=== PATIENT | female | born 1970 | race Caucasian/White ===

== ENCOUNTER 2017-09-06 06:26 | Day surgery (SDC) | payer OTHER ==
[2017-09-06] MEDS ORDERED: LIDOCAINE 1%/EPI 1:100000 (20 ML MULTI DOSE VIAL) ONE (07:28)
[2017-09-06] MEDS ORDERED: ACETAMINOPHEN 325 MG TABLET (FP) PO PRN (08:02)
[2017-09-06] MEDS ORDERED: CIPROFLOXACIN HCL 0.3% OPHTH 2.5ML BOTTLE OP SCH (08:15)
[2017-09-06] MEDS ORDERED: CIPROFLOXACIN 0.3% EYE DROPS 5 ML BOTTLE ONE (08:16)
[2017-09-06] MEDS ORDERED: MIDAZOLAM HCL 2 MG/2 ML SINGLE DOSE VIAL ONE (09:15)
[2017-09-06] MEDS ORDERED: TETRACAINE 0.5% OPHTH SOLN 2 ML BOTTLE OD ONE (09:20)
[2017-09-06] MEDS ORDERED: POVIDONE-IODINE 5% OPHTHALMIC PREP 30 ML SOLUTION OD ONE (09:36)
[2017-09-06] MEDS ORDERED: LIDOCAINE 1%/EPI 1:100000 (20 ML MULTI DOSE VIAL) IJ ONE (09:42)
[2017-09-06] MEDS ORDERED: BSS (NA/CA/MG/K) BALANCED SALT SOLUTION OPHTH SOLN 15 ML BOTTLE OD ONE (09:42)
[2017-09-06] MEDS ORDERED: TRIAMCINOLONE ACET 40MG/1ML VIAL IJ ONE (10:11)
[2017-09-06] MEDS ORDERED: ACETAMINOPHEN 325 MG TABLET (FP) ONE (11:09)
--- NOTE | 2017-09-06 14:15 | OP ---
DATE OF OPERATION: 09/06/2017 SURGEON: Aracelis Flynn MD PREOPERATIVE DIAGNOSIS: Recurrent pterygium, right eye. POSTOPERATIVE DIAGNOSIS: Recurrent pterygium, right eye. PROCEDURE: Excision of recurrent pterygium with conjunctival autograft, right eye. ANESTHESIA: Topical MAC. COMPLICATONS: None. DESCRIPTION OF PROCEDURE: The patient was brought into the operating room and correctly identified along with the operative site. She was then prepped and draped in the usual sterile fashion including 5% Betadine solution in the conjunctival sac and an eyelid drape. An eyelid speculum was then placed into the right eye. The pterygium was inspected, and the borders were marked with a marking pen. Using Anna scissors, two conjunctival relaxing incisions were made superior and inferior to the pterygium, and the Anna scissors were then used to dissect to bare sclera. The pterygium was then bluntly dissected using Anna scissors as well as the Colibri forceps from the cornea. Care was made not to breech bone with membrane. The 57 blade was then used to sao tomean the corneal surface until there was no residual opacity noted. The pterygium was then further inspected and blunt dissection was performed using cotton-tip applicators as well as Weck-Cell Wasserman to release any subconjunctival scarring. This was performed pretty cleanly. There was some superior limbal scarring, and this was also freed with the Anna scissors. The conjunctival defect was immediately noted to retract despite not removing any recurrent pterygium. Some dissection was placed was then performed subconjunctivally in the area of the conjunctival defect for possibly 1-2 mm in the remaining conjunctiva. Care was made not to damage the medial rectus tendon by elevating the tissue. The conjunctival defect was then measured and measured vertically at the limbus 7 mm x 5 mm posterior and horizontally 5 mm. Attention was then placed to the superotemporal conjunctiva, and a small amount of lidocaine was injected, and appropriately sized conjunctival membrane was then created and freed. This conjunctival membrane was then brought over to the nasal conjunctival defect and secured in placed with five 10-0 nylon interrupted sutures. At the end of the procedure, the graft was noted to be well secured. The graft was approximately set 1 mm from the limbus, and subconjunctival Kenalog given, topical vancomycin given, the eye patched, and the patient discharged from the operating room in a stable condition. ARACELIS FLYNN M.D. [id number]
--- NOTE | 2017-09-07 11:38 | PATH ---
Surgical Pathology Report Patient Name: BRINDA FARRAR [facility]. Rec. #: [id number] /Age/Gender: 1970 (Age: 47) / F Account: [id number] Location: [facility] SURGICAL Taken: 09/06/2017 Received: 09/06/2017 Reported: 09/07/2017 Physicians: Lino Lyons M.D. Specimen(s) Received PTERYGIUM RIGHT EYE Clinical History Recurrent pterygium O.D. Final Diagnosis CONJUNCTIVA, RIGHT EYE, EXCISION: PTERYGIUM. Electronically Signed Keo Tubbs M.D. Gross Description Received in formalin, labeled "pterygium right eye" are 2 mcgarry, irregular portions of soft tissue averaging 0.2 cm. in greatest dimension. The specimens are submitted in toto in one cassette. /09/06/201709/06/2017
== END 2017-09-06 11:41 | disposition home or self-care (01) ==
LOC: JASU-SURG 06:26
PROVIDERS: ATTEND Ophthalmology
PROC: 08U007Z Supplement of Right Eye with Autologous Tissue Substitute, Open Approach (ICD-10-PCS; principal; 2017-09-06 09:00)
DX: H11.001 Unspecified pterygium of right eye (principal)
CPT/HCPCS: 82962; 88304-TC